=== PATIENT | male | born 1985 | race Two or more races ===

== ENCOUNTER 2020-11-22 22:21 | Emergency (ER) | payer MEDICAID ==
[~2020-11-22] VITALS: Ht 175.3 cm; Wt 65.8 kg
--- NOTE | 2020-11-22 22:25 | NUR ---
pt bibself c/o lac on rt index finger from drinking glass. Pt [id number] breathing evenly and unlabored. Pt states " i was cleaning a drinking glasss and it broke and cut me" Emt at bedside for wound cleaning. Lac is well approximated and approximately 4cm long. Pt attached to monitor and pox. Pt given call light within reach
[2020-11-22] MEDS: TDAP [DIPH/PERTUSSIS/TET] 0.5 ML VIAL IM ONE (22:30)
[2020-11-22] MEDS: LIDOCAINE 1% INJ 50 ML MDV IJ ONE (22:30)
[2020-11-22] MEDS ORDERED: LIDOCAINE 1% INJ 50 ML MDV IJ ONE (22:33)
[2020-11-22] MEDS ORDERED: TDAP [DIPH/PERTUSSIS/TET] 0.5 ML VIAL IM ONE (22:34)
--- NOTE | 2020-11-22 22:45 | NUR ---
PA at bedside for stitches procedure
--- NOTE | 2020-11-22 23:20 | NUR ---
Patient discharged to home in stable condition. Written and verbal after care instructions given. Patient verbalizes understanding of instruction. Pt ambulatory with a steady gait
[2020-11-22 23:28] VITALS: BP 120/78
== END 2020-11-22 23:20 | disposition home or self-care (01) ==
LOC: ER 22:24
DX: S61.411A Laceration without foreign body of right hand, initial encounter (principal); W25.XXXA Contact with sharp glass, initial encounter; Y93.89 Activity, other specified; Y92.89 Other specified places as the place of occurrence of the external cause; Y99.8 Other external cause status
CPT/HCPCS: 12002; 90471; 90715; 99283; A6403; J3490

== ENCOUNTER 2020-12-08 12:39 | Emergency (ER) | payer MEDICAID ==
[~2020-12-08] VITALS: Ht 175.3 cm; Wt 65.8 kg
[2020-12-08 12:44] VITALS: BP 132/77
== END 2020-12-08 13:04 | disposition home or self-care (01) ==
LOC: ER 12:42
DX: S61.210D Laceration without foreign body of right index finger without damage to nail, subsequent encounter (principal); X58.XXXD Exposure to other specified factors, subsequent encounter